=== PATIENT | male | born 1950 | race Caucasian/White ===

== ENCOUNTER → 2017-11-07 | Outpatient (CLI) | payer MEDICARE ==
[2014-05-12 15:59] VITALS: BMI 32.3
[~2017-11-07] MED LIST: ALL300 PO; ALLOPURINOL; AMLO-98 PO; BIS10S PR; CHOL100052 PO; CLON-393 PO; CLON1 PO; ENO40I SQ; FOLI20CA2 PO; FUR20 PO; GAB300 PO; GABA-1 PO; GEMFIBROZIL; IBUP-56 PO; IRO150 PO; LISINOPRIL; METO-259 PO; MOM PO; NYSL PO; OXY10 PO; OXYC-689 PO; POTA10CA61 PO; POTA8CAP14 PO; PRE5 PO; TRAZ-133 PO; VITA1CAP46 PO
== END ==
LOC: RESP 20:57
PROVIDERS: ATTEND Nurse Practitioner Family
DX: G47.30 Sleep apnea, unspecified (principal); G47.61 Periodic limb movement disorder; G47.36 Sleep related hypoventilation in conditions classified elsewhere; E66.9 Obesity, unspecified

== ENCOUNTER → 2018-02-26 | Outpatient (CLI) | payer MEDICARE ==
[2014-05-12 15:59] VITALS: BMI 32.3
--- NOTE | 2018-02-26 14:59 | RADIOLOGY IMAGING REPORT ---
[place] [facility] [place] Kit Barkley : 1950 MR: [id number] V: [id number] EXAM DATE: ORDERING PHYSICIAN: SONIA HATHAWAY TECHNOLOGIST: Location: [facility] - [place] Patient: Kit Barkley : 1950 Visit/Account:[id number] Date of Sevice: 02/26/2018 DEXA Scan Clinical history: Osteopenia. Hypogonadism. Comparison: None. HIP: Bone mineral density (BMD) measured in the left Total Hip region correlates with a Z-score of 1.0 and a T-score of 0.8 which is normal as defined by the World Health Organization. The corresponding ris k of fracture in the hip is not increased compared with a young adult reference population. Bone mineral density (BMD) measured in the left femoral neck correlates with a Z-score of 1.6 and a T -score of 0.9 which is normal as defined by the World Health Organization. The corresponding risk of fracture in the hip is not increased compared with a young adult reference population. Bone mineral density (BMD) measured in the left Femoral Neck region measures 1.19 g/cm2. FOREARM: The bone mineral density (BMD) measured in the ULTRADISTAL right forearm, where trabecular bone predo minates, correlates with a Z-score of 0.1 and a T-score of -0.6 which is normal as defined by the Wor ld Health Organization. The corresponding risk of fracture in the distal forearm is increased 1-2 ti mes compared with a young adult reference population. The bone mineral density (BMD) in the MIDSHAFT of the forearm, where cortical bone predominates, katty elates with a Z score of 0.0 and a T-score of -0.7 which is normal as defined by the World Health Or ganization. The corresponding risk of fracture in the midshaft of the forearm is increased 1-2 times compared with a young adult reference population. IMPRESSION: 1. Left total hip: Normal 2. Left femoral neck: Normal. 3. Left Femoral Neck: Bone Mineral Density is 1.19 g/cm2 4. Right Forearm: Normal. The next DEXA scan of this patient should include the following sites: Left hip and right forearm. FRAX? WHO Fracture Risk Assessment Tool link: <http://www.shef.ac.uk/FRAX/tool.jsp?locationValue=9> PLEASE NOTE: 1) The World Health Organization defines low BMD as follows: T-score Normal > -1 Osteopenia < -1 and > -2.5 Osteoporosis < -2.5 without fractures Established osteoporosis < -2.5 with fractures 2) In general, you may wish to consider: Diagnosis Treatment Follow-up DEXA Normal BMD Prevention 2-3 years Osteopenia Prevention/therapy 1-2 years Osteoporosis Therapy Yearly 3) Fracture risk estimated from the T-score is more accurate for vertebral fractures (often spontane ous) than for hip fractures. Report Dictated By: Renetta Bales MD at 02/26/2018 2:13 PM Report E-Signed By: Renetta Bales MD at 02/26/2018 2:55 PM WSN:[id number]
== END ==
LOC: RAD 12:12
PROVIDERS: ATTEND Urology
DX: Z13.820 Encounter for screening for osteoporosis (principal); E29.1 Testicular hypofunction; M85.88 Other specified disorders of bone density and structure, other site
CPT/HCPCS: 77080

== ENCOUNTER → 2018-05-19 | Outpatient (CLI) | payer MEDICARE ==
[2014-05-12 15:59] VITALS: BMI 32.3
[~2018-05-19] MED LIST changes: +REGADENOSON 0.4 MG/5 ML SYR ONE
--- NOTE | 2018-05-19 16:15 | RADIOLOGY IMAGING REPORT ---
FACILITY: [facility] PATIENT NAME: Kit Barkley : 1950 MR: [id number] V: [id number] EXAM DATE: ORDERING PHYSICIAN: ALICE RUSS TECHNOLOGIST: Location: [facility] - [place] Patient: Kit Barkley : 1950 Visit/Account:[id number] Date of Sevice: 05/19/2018 REGADENOSON (LEXISCAN) MYOCARDIAL PERFUSION IMAGING. EXAMINATION: Single isotope SPECT imaging with regadenoson infusion and gated SPECT imaging. DATE OF EXAMINATION: May 19, 2018. REQUESTING PHYSICIAN:PETRONA INDICATION: Shortness of breath PROCEDURE: After informed consent the patient received an intravenous injection of Tc-99m sestamibi followed at an appropriate time interval by rest imaging. The patient then subsequently received an intravenous infusion of 0.4 mg of regadenoson per protocol without complication. Resting heart rate was 55 bpm with a peak heart rate of 68 bpm. Blood pressure at rest was 128/59 and following infusi on was 118/58 . Baseline EKG demonstrates sinus rhythm. There were no EKG changes of ischemia follo wing infusion. Non-specific symptoms were reported. The patient then received an intravenous inject ion of Tc-99m sestamibi followed by stress imaging. DOSE of Tc-99m sestamibi (mCi): REST: 11.7 STRESS: 31.1 RAW DATA: Examination of the summed raw data revealed a good quality study. MYOCARDIAL PERFUSION: The tomographic images demonstrate normal myocardial perfusion without evidenc e of myocardial ischemia or infarct. GATED IMAGES: The gated images demonstrate normal LV systolic performance and wall motion with LVEF 71%. IMPRESSION: 1. Nondiagnostic ECG portion of Lexiscan stress test. 2. Normal myocardial perfusion study without evidence of myocardial ischemia or infarct 3. Normal LV systolic performance and wall motion with LVEF 71% Report Dictated By: Larry Meléndez at 05/19/2018 4:05 PM Report E-Signed By: Larry Meléndez at 05/19/2018 4:10 PM WSN:[id number]
--- NOTE | 2018-05-20 11:01 | RT STRESS TEST REPORT ---
FACILITY: [facility] - [place] PATIENT NAME: KATHI VU : [id number] MR: [id number] V: [id number] EXAM DATE: ORDERING PHYSICIAN: TAMANNA RUSS TECHNOLOGIST: [employer] Time: 2018-05-19 09:22:20 Total Exercise Time: 00:01:00 Test Indications: Dizzy Spells Medications: see nuc med list Protocol: LEXISCAN Max HR: 068 BPM 44% of Pred: 153 BPM Max BP: 128/059 mmHG Max Work Load: 1.0 METS Impression No EKG changes note to suggest ischemia Nuclear medicine report to follow Confirmed by KAM ROSENTHAL ([id number]) on 05/20/2018 11:00:43 AM Referred By: Tamanna Russ Overread By: KAM ROSENTHAL
== END ==
LOC: RESP 01:19
PROVIDERS: ATTEND Nurse Practitioner Family
DX: I10 Essential (primary) hypertension (principal); J44.9 Chronic obstructive pulmonary disease, unspecified; R06.00 Dyspnea, unspecified; R53.81 Other malaise
CPT/HCPCS: 93017; J2785; 78452; A9500

== ENCOUNTER → 2018-10-14 | Outpatient (CLI) | payer MEDICARE ==
[2018-06-14 12:37] VITALS: BMI 38.2
[~2018-10-14] MED LIST changes: +CHOL500045 PO; +CLON-329 PO; +DIAZ-308 PO; +FOLI-68 PO; +FURO-45 PO; +GABA-507 PO; +IBUP600T22 PO; +LAN30PT PO; +LEVO50TA86 PO; +MECL25TA9 PO; +METO2.5T15 PO; +METO200T12 PO; +METO50TA19 PO; +OMEG-11 PO; +POTA10CA40 PO; +POTA20TA94 PO; -REGADENOSON 0.4 MG/5 ML SYR ONE; +SULF-198 PO
--- NOTE | 2018-10-14 15:50 | RADIOLOGY IMAGING REPORT ---
[place] [facility] [place] NAME: Kit Barkley : 1950 MR: [id number] V: [id number] EXAM DATE: ORDERING PHYSICIAN: ALICE RUSS TECHNOLOGIST: [place] [facility] [place]: Kit Barkley : 1950 Visit/Account:[id number] Date of Sevice: 10/14/2018 TESTICULAR HISTORY: Hydrocele on the right COMPARISON: March 08, 2014 FINDINGS: Testes: Right testicle measures 2.8 x 0.8 x 2.3 centers. Left testicle measures 3.8 x 1.6 x 2.1 cm.. Blood flow documented by color and Duplex Doppler ultrasound to both testes however there appear to be less flow to the right testicle relative to the left.. Several small scattered calcified occasio ns are identified in both testes Epididymides: The head epididymis on the right measures 1 cm 6 mm in hypoechoic region head the epidi dymis on the right appears slightly less prominent. The body and tail of the right epididymis appear s heterogeneous The head body and tail the epididymis on the left appears extremely heterogeneous an d prominent Hydrocele: Huge on the right small on the left Varicocele: None definite IMPRESSION: Huge right hydrocele has reaccumulated when compared to the prior study. The right testicle appears atrophic and mildly hypovascular. There several small scattered calcination occasions in both testes There is a small left hydrocele The epididymides appear extremely heterogeneous bilaterally which more so on the left than the right appears more prominent when compared to the prior ultrasound. Report Dictated By: Norma Rose MD at 10/14/2018 3:35 PM Report E-Signed By: Norma Rose MD at 10/14/2018 3:45 PM WSN:[id number]
== END ==
LOC: US 07:26
PROVIDERS: ATTEND Nurse Practitioner Family
DX: N43.3 Hydrocele, unspecified (principal)
CPT/HCPCS: 76870

== ENCOUNTER → 2018-10-23 | Outpatient (CLI) | payer MEDICARE ==
[2018-06-14 12:37] VITALS: BMI 38.2
[~2018-10-23] MED LIST changes: -GABA-507 PO; +GABA-535 PO
[2018-10-23 15:42] LABS: PLATELET COUNT, AUTOMATED 81 K/uL (150-450)
== END ==
LOC: LAB 14:52
PROVIDERS: ATTEND Urology
DX: Z01.812 Encounter for preprocedural laboratory examination (principal)
CPT/HCPCS: 36415; 85025

== ENCOUNTER → 2018-10-23 | Outpatient (CLI) | payer MEDICARE ==
[2018-06-14 12:37] VITALS: BMI 38.2
--- NOTE | 2018-10-23 14:45 | EKG ---
FACILITY: [facility] - [place] PATIENT NAME: KATHI VU : [id number] MR: [id number] V: [id number] EXAM DATE: ORDERING PHYSICIAN: REGIS PENA TECHNOLOGIST: Test Reason : preop clearance Blood Pressure : / mmHG Vent. Rate : 062 BPM Atrial Rate : 058 BPM P-R Int : 186 ms QRS Dur : 100 ms QT Int : 416 ms P-R-T Axes : 030 075 023 degrees QTc Int : 422 ms Sinus bradycardia with premature supraventricular complexes Otherwise normal ECG No previous ECGs available Confirmed by SARA VALDOVINOS ([id number]) on 10/23/2018 6:40:50 PM Referred By: Confirmed By:SARA VALDOVINOS
--- NOTE | 2018-10-23 17:32 | RADIOLOGY IMAGING REPORT ---
FACILITY: [facility] PATIENT NAME: Kit Barkley : 1950 MR: [id number] V: [id number] EXAM DATE: ORDERING PHYSICIAN: REGIS PENA [place]CHN[place] [facility] [place] : 1950 Visit/Account:[id number] Date of Sevice: 10/23/2018 Study: Frontal and lateral views of the chest Indication: Preop Comparison study: June 12, 2018 Findings: PA and lateral views of the chest demonstrate no evidence of acute infiltrate. There is d iscoid atelectasis or fibrosis within the right middle lobe. This is unchanged as compared to the pre vious study. There is no evidence of pleural effusion. There is no evidence of pneumothorax. The mediastinal, cardiac, and diaphragmatic contours are unremarkable. The visualized bony structures are unremarkable. IMPRESSION: No acute cardiopulmonary abnormality identified. Report Dictated By: Hector Jones at 10/23/2018 5:25 PM Report E-Signed By: Hector Jones at 10/23/2018 5:26 PM WSN:[id number]
== END ==
LOC: RAD 14:05
PROVIDERS: ATTEND Urology
DX: Z01.818 Encounter for other preprocedural examination (principal); I49.3 Ventricular premature depolarization
CPT/HCPCS: 71046; 93005

== ENCOUNTER → 2018-11-30 | Outpatient (CLI) | payer MEDICARE ==
[2018-06-14 12:37] VITALS: BMI 38.2
[~2018-11-30] MED LIST changes: +METO-233 PO; +SPIR25TA80 PO
== END ==
LOC: US 12:59
PROVIDERS: ATTEND Internal Medicine
DX: R60.9 Edema, unspecified (principal)
CPT/HCPCS: 93306

== ENCOUNTER 2018-12-01 13:44 | Emergency (ER) | payer MEDICARE ==
[2018-06-14 12:37] VITALS: Wt 127.0 kg
--- NOTE | 2018-12-01 14:41 | ER Report ---
History and Physical Time Seen By MD: 14:40 Hx. of Stated Complaint: pt reports having echo done yesterday and today was told by light out examiner to come to er because he "might have a fib" HPI/ROS CHIEF COMPLAINT: Sent by primary care provider and light out examiner HISTORY OF PRESENT ILLNESS: This is a 68-year-old male who presents to the emergency department, for concerns about atrial fibrillation. The patient states that he had laboratory studies done today as well as an abdominal ultrasound, had an echocardiogram completed yesterday, was sent by his light out examiner as they were concerned that he may be in and out of atrial fibrillation. Patient has had increased lower extremity swelling, they keep adjusting his furosemide, and there was a concern that he is in a fibrillation today. Patient arrives with no complaints at this time. Wears continuous oxygen. Long-standing history of alcohol abuse. Patient denies fevers or chills. No chest pain or shortness breath. No nausea vomiting. No rashes or meningismus. REVIEW OF SYSTEMS: Constitutional: No fever, no chills. Eyes: No discharge. ENT: No sore throat. Cardiovascular: As above. Respiratory: No cough, no shortness of breath. Gastrointestinal: No abdominal pain, no vomiting. Genitourinary: No hematuria. Musculoskeletal: No back pain. Skin: No rashes. Neurological: No headache. Allergies: Coded Allergies: lisinopril (Verified Allergy, Severe, ANGIOEDEMA, 12/01/18) SWELLING OF TONGUE CAUSING AIRWAY OBSTRUCTION Home Meds Reported Medications Furosemide (FUROSEMIDE) 20 Mg Tablet, 1 TAB PO BID, TAB 12/01/18 Diazepam (DIAZEPAM) 5 Mg Tablet, 5 MG PO PRN, #15 TAB 10/28/18 Spironolactone (SPIRONOLACTONE) 25 Mg Tablet, 25 MG PO PRN, TAB 10/28/18 Metoprolol Succinate (TOPROL XL) 50 Mg Tab.er.24h, 1 TAB PO QDAY, TAB 10/28/18 Meclizine Hcl (MECLIZINE HCL) 25 Mg Tablet, 1 TAB PO PRN 06/12/18 Levothyroxine Sodium (LEVOTHYROXINE SODIUM) 50 Mcg Tablet, 1 TAB PO QDAY, TAB 05/22/18 [place]-3 Fatty Acids/Fish Oil (FISH OIL 1,000 MG CAPSULE) 1 Each Capsule, 2 CAP PO QDAY, CAPSULE 05/22/18 Folic Acid (FOLIC ACID) 1 Mg Tablet, 1 TAB PO QDAY, TAB 05/22/18 Gabapentin (GABAPENTIN) 800 Mg Tablet, 1 TAB PO TID 05/22/18 Cholecalciferol (Vitamin D3) (VITAMIN D) 5,000 Unit Tablet, 1 TAB PO QDAY 05/22/18 Vitamin B Complex (VITAMIN B COMPLEX) 1 Each Capsule, 1 CAP PO QDAY, CAPSULE 06/13/17 Amlodipine Besylate (Amlodipine Besylate) 10 Mg Tablet, 1 TAB PO QDAY, 0 Refills 10/18/11 Past Medical/Surgical History The patient has a past medical and surgical history of hypertension, hypercholesterolemia, COPD, continues use of oxygen, occasional diarrhea, hydrocele, gout, arthritis, left clavicle fracture, chronic back pain, wears glasses, hypothyroidism, eczema, cellulitis, abscess, chronic alcohol abuse, appendectomy, colonoscopy, I lateral knee replacements, tonsillectomy. Reviewed Nurses Notes: Yes Hx Smoking: Yes (1PPD X 30 YRS QUIT 2009) Smoking Status: Former Smoker Exposure to Second Hand Smoke?: No Hx Substance Use Disorder: Yes Hx Alcohol Use: Yes Constitutional Vital Sign - Last 24 Hours 12/01/18 12/01/18 12/01/18 12/01/18 13:50 14:45 15:00 15:09 Pulse 86 76 79 Resp 18 12 24 B/P (MAP) 151/63 151/66 (94) 146/63 (90) Pulse Ox 91 95 O2 Delivery Nasal Cannula O2 Flow Rate 2.5 12/01/18 12/01/18 12/01/18 12/01/18 15:15 15:30 15:45 16:00 Pulse 75 75 75 80 Resp 11 8 24 15 B/P (MAP) 142/60 (87) 138/63 (88) Pulse Ox 92 92 94 94 12/01/18 16:15 Pulse 74 Resp 0 Pulse Ox 93 Physical Exam General Appearance: The patient is alert, has no immediate need for airway protection and no signs of toxicity. Eyes: Pupils equal and round no pallor or injection. ENT, Mouth: Mucous membranes are moist. Respiratory: There are no retractions, lungs are clear to auscultation. Cardiovascular: Regular rate and rhythm. Gastrointestinal: Abdomen is soft and non tender, no masses, bowel sounds normal. Skin: Warm and dry, no rashes. Nonpitting edema to bilateral lower extremities. Musculoskeletal: Neck is supple non tender. Extremities are nontender, nonswollen and have full range of motion. DIFFERENTIAL DIAGNOSIS: After history and physical exam differential diagnosis was considered for atrial fibrillation, SVT, atrial flutter, pulmonary emboli, DVT. Medical Decision Making EKG/Imaging EKG Interpretation 12 lead EKG: Time of EKG 1448. Rhythm: Normal sinus rhythm, ventricular rate 80 bpm. [place]: Left axis deviation. QRS: normal ST segments: No ST depression or elevation identified, flattened T waves in lead 3. ED Course/Re-evaluation ED Course Patient was admitted to room. A history of disc or obtained. Differential diagnoses were considered. As the patient had no complaints today, states he was sent by his light out examiner for possible a fibrillation, an EKG was performed which is showing normal sinus rhythm. I spoke with the patient's primary care provider, Alice Wilkinson, we agreed to place the patient on a Holter monitor for 48 hours to evaluate for was for atrial fibrillation. Patient was in agreement with this plan of care. No other complaints, patient remained in sinus rhythm while in the emergency department. Patient will follow-up with his primary care provider this week for reevaluation. Had no other questions or concerns and was discharged home. 12/01/2018 3:18:39 pm I did speak with the patient's primary care provider, they were concerned that he may be and out of atrial fibrillation, we discussed the patient's bedside EKG which is showing normal sinus rhythm with no concerning findings. We discussed placing the patient on a Holter monitor and following up with his primary care provider within the next week for reevaluation. Patient is agreeable with this plan of care. Decision to Disposition Date: Dec 01, 2018 Decision to Disposition Time: 16:07 Depart Departure Latest Vital Signs Vital Signs Date Time Temp Pulse Resp B/P (MAP) Pulse Ox O2 Delivery O2 Flow Rate FiO2 12/01/18 16:15 74 0 93 12/01/18 16:00 138/63 (88) 12/01/18 15:09 2.5 12/01/18 13:50 Nasal Cannula Impression: Primary Impression: Lower extremity edema Condition: Improved Disposition: HOME OR SELF-CARE Referrals: ALICE WILKINSON (PCP) 5 Days Patient Instructions: Leg Edema (ED) Additional Instructions: Wear the holter monitor for 48 hours. Return the monitor as directed by the respiratory therapist. Please follow up with Alice Wilkinson, this week for reevaluation. Drink plenty of water. Get plenty of rest. When not up walking around, keep the legs elevated. Return to the ED for any other concerns or worsening symptoms. ALFONZO HAMMOND NIBBLER OPERATOR-BC Dec 01, 2018 14:41
[2018-12-01] MEDS ORDERED: FURO-45 PO (15:03)
[2018-12-01 16:00] VITALS: BP 138/63
--- NOTE | 2018-12-01 16:28 | EKG ---
FACILITY: [facility] PATIENT NAME: KATHI VU : [id number] MR: [id number] V: [id number] EXAM DATE: ORDERING PHYSICIAN: ALFONZO HAMMOND TECHNOLOGIST: LEONEL Test Reason : SENT OVER FROM Blood Pressure : / mmHG Vent. Rate : 080 BPM Atrial Rate : 080 BPM P-R Int : 180 ms QRS Dur : 092 ms QT Int : 380 ms P-R-T Axes : 000 -44 032 degrees QTc Int : 438 ms Normal sinus rhythm Left axis deviation Anterior infarct , age undetermined Abnormal ECG When compared with ECG of 23-OCT-2018 14:34, premature supraventricular complexes are no longer present QRS axis shifted left Confirmed by KENDRICK ARAUJO ([id number]) on 12/01/2018 8:03:14 PM Referred By: ALFONZO Confirmed By:KENDRICK ARAUJO
--- NOTE | 2018-12-04 10:43 | RT HOLTER TEST ---
[facility] PATIENT NAME: KATHI VU : [id number] MR: [id number] V: [id number] EXAM DATE: ORDERING PHYSICIAN: ALFONZO HAMMOND TECHNOLOGIST: LEONEL Hook-up date: 2018-12-01 16:11:00 Duration: 47:50:00 Test Indications: AFIB Medications: [id number] QRS complexes 1 Ventricular ectopics which represent <1 % of total QRS comp. 100 Supraventricular ectopics which represent <1 % of total QRS comp. * Paced QRS complexes which represent % of total QRS comp. VENTRICULAR ECTOPY 1 Isolated 0 Bigeminal Cycles 0 Couplets 0 Runs 0 Beats in Runs * Beats LONGEST at * BPM at :: -- * Beats FASTEST at * BPM at :: -- SUPRAVENTRICULAR ECTOPY 92 Isolated 4 Couplets 0 Runs 0 Beats in Runs * Beats LONGEST at * BPM at :: -- * Beats FASTEST at * BPM at :: -- HEART RATES 53 MIN at 03:49:39 2018-12-03 73 AVG 113 MAX at 16:42:19 2018-12-02 LONGEST RR 2.128 secs at 00:33:53 2018-12-03 S-T LEVELS Channel 1 -12.800 mm MIN at 16:11:00 2018-12-01 -12.800 mm MAX at 16:11:00 2018-12-01 Channel 3 -12.800 mm MIN at 16:11:00 2018-12-01 -12.800 mm MAX at 16:11:00 2018-12-01 There were no reported symptoms during the test. The patient was in a sinus rhythm throughout the te st with rare supraventricular ectopy and one beat of ventricular ectopy. Confirmed by KENDRICK ARAUJO ([id number]) on 12/04/2018 10:43:41 AM Referred By: Overread By: KENDRICK ARAUJO
== END 2018-12-01 16:29 | disposition home or self-care (01) ==
LOC: ER 14:47
DX: R60.0 Localized edema (principal)
CPT/HCPCS: 93005; 93225; 99283

== ENCOUNTER → 2018-12-01 | Outpatient (CLI) | payer MEDICARE ==
[2018-06-14 12:37] VITALS: BMI 38.2
--- NOTE | 2018-12-01 09:17 | RADIOLOGY IMAGING REPORT ---
FACILITY: [facility] - [place] PATIENT NAME: Kit Barkley : 1950 MR: [id number] V: [id number] EXAM DATE: ORDERING PHYSICIAN: MOISES HAYNES TECHNOLOGIST: Location: [facility] Patient: Kit Barkley : 1950 Visit/Account:[id number] Date of Sevice: 12/01/2018 ABDOMEN COMPLETE HISTORY: Shortness of breath, edema, cirrhosis, ascites COMPARISON: CT scan 06/12/2016 TECHNIQUE: [place] scale, color and Duplex imaging of the abdomen was performed. FINDINGS: Gallbladder: Unremarkable; no stones or sludge.. The gallbladder wall measures 3 mm. There was no so nographic Thorne sign. Common duct: Normal, 3 mm diameter. Liver: The liver measures 22 cm. Liver has a coarsened echotexture with a lobulated surface sugges ting cirrhosis. No focal liver lesions are seen to suggest an occult hepatoma. Main portal vein is patent with hepatopedal flow. Pancreas: Obscured Spleen: The spleen measures 13.9 cm and is slightly enlarged. Kidneys: The right kidney length measures 11.5 cm. The left kidney length measures 12.4 cm. Both k idneys are normal in size and echotexture. Tiny echogenic focus in the midpole right kidney is of un certain significance could represent a tiny nonobstructing stone. Upper abdominal aorta and IVC: Patent. Ascites: None visualized. IMPRESSION: 1. Enlarged heterogeneous liver with an irregular surface suggesting cirrhosis. No evidence for occ ult hepatoma. Main portal vein is patent with hepatopedal flow. 2. Mildly enlarged spleen. 3. No evidence for ascites. 4. Possible small nonshadowing, nonobstructing stone midpole right kidney Report Dictated By: Klaus Marshall MD at 12/01/2018 9:06 AM Report E-Signed By: Klaus Marshall MD at 12/01/2018 9:12 AM WSN:[email or web address]
[2018-12-01 09:43] LABS: PLATELET COUNT, AUTOMATED 143 K/uL (150-450)
== END ==
LOC: US 11-30 13:49
PROVIDERS: ATTEND Internal Medicine
DX: K76.0 Fatty (change of) liver, not elsewhere classified (principal); R16.1 Splenomegaly, not elsewhere classified
CPT/HCPCS: 36415; 76700; 82040; 82247; 82310; 82374; 82435; 82565; 82947; 84075; 84132; 84155; 84295; 84450; 84460; 84520; 85025